=== PATIENT | male | born 1960 | race Caucasian/White ===

== ENCOUNTER 2018-10-14 20:42 | Inpatient (IN) | payer OTHER ==
[~2018-10-14] VITALS: Ht 180.3 cm; Wt 79.4 kg
[2018-10-14] MEDS ORDERED: CIPRO250 MG PO (21:29)
[2018-10-22] MEDS ORDERED: INTESTINEX680 M1 PO (15:04)
[2018-10-22] MEDS ORDERED: LOSARTAN POTASS50 MG PO (15:04)
[2018-10-22] MEDS ORDERED: AMLODIPINE BESY10 MG PO (15:04)
== END 2018-10-22 19:17 | disposition home or self-care (01) | DRG 571 ==
LOC: ER 20:42 → SEC-K 10-15 09:15 → MEDJ 10-15 09:15
PROVIDERS: ADMIT Internal Medicine
PROC: 0JBR0ZZ Excision of Left Foot Subcutaneous Tissue and Fascia, Open Approach (ICD-10-PCS; principal; 2018-10-16)
PROC: 0JBP0ZZ Excision of Left Lower Leg Subcutaneous Tissue and Fascia, Open Approach (ICD-10-PCS; 2018-10-16)
DX: L03.032 Cellulitis of left toe (principal); L03.116 Cellulitis of left lower limb; B20 Human immunodeficiency virus [HIV] disease; B95.61 Methicillin susceptible Staphylococcus aureus infection as the cause of diseases classified elsewhere; I10 Essential (primary) hypertension

== ENCOUNTER 2021-12-14 07:33 | Outpatient (CLI) | payer OTHER ==
[~2021-12-14 07:33] MED LIST: AMLODIPINE BESY10 MG PO; CIPRO250 MG PO; INTESTINEX680 M1 PO; LOSARTAN POTASS50 MG PO
== END 2021-12-14 07:34 | disposition home or self-care (01) ==
LOC: EDBD 07:33 → NUCLEAR 07:33
PROVIDERS: ATTEND Internal Medicine Cardiovascular Disease
DX: I25.9 Chronic ischemic heart disease, unspecified (principal)
CPT/HCPCS: 78452; 93017; A9500

== ENCOUNTER 2021-12-14 07:47 | Outpatient (CLI) | payer OTHER | END 2021-12-14 07:49 | disposition home or self-care (01) | LOC: LAB 07:47 → EDBD 07:47 → LAB 07:49 | PROVIDERS: ATTEND Internal Medicine | DX: U07.1 COVID-19 (principal); B34.1 Enterovirus infection, unspecified ==